=== PATIENT | female | born 1980 | race Caucasian/White ===

== ENCOUNTER 2017-03-14 08:20 | Emergency (ER) | payer BC ==
--- NOTE | ~2017-03-14 | CR63 ---
[facility]. [facility] A Service of [facility] & [facility] RADIOLOGY TEXT RESULTS PATIENT: RAKEL JACK LOCATION: SED : 79 UNIT #: [id number] AGE: [address]: Johann Manzo MD SEX: F ORDER DR: [id number] [address] [address] [id number] E MR#: [id number] Acc #: [id number] NAME: RAKEL JACK : 1980 SEX: F STUDY DATE/TIME: 03/14/2017 0847 UNIT: SED ROOM: STUDY DESCRIPTION: CR Chest 2 View Attending Physician: Johann Manzo M.D. Ordering Physician: Johann Manzo M.D. MEDICAL IMAGING REPORT This report is preliminary unless electronic signature is present. EXAM Chest, 2 views, 03/14/2017, 0847 hours. CLINICAL HISTORY Cough with onset of back pain four days ago from coughing. Chest pain when coughing. COMPARISON Chest film, 09/05/2013. FINDINGS Upright PA and lateral views of the chest demonstrate normal cardiac, mediastinal, and hilar contours. The lungs are well inflated and clear. There are no effusions or bone lesions. IMPRESSION Normal two-view chest exam. Dictated by... Jennifer Loyola M.D. THIS IS AN ELECTRONICALLY VERIFIED REPORT Jennifer Loyola M.D. at 03/14/2017 2:30 PM KARELY/rey TD: 03/14/2017 11:51 JOB #: [id number] MEDICAL IMAGING REPORT Page 1 of 1
[~2017-03-14 08:20] MED LIST: AVAPRO PO; BIRTH CONTROL PILL; CELEXA PO; KEFLEX PO; LEVAQUIN PO; MICROZIDE12.5 M1 PO; NITROFURANTOIN100 M3 PO
== END 2017-03-14 09:38 | disposition home or self-care (01) ==
LOC: SED 08:20
DX: J20.9 Acute bronchitis, unspecified (principal); J01.00 Acute maxillary sinusitis, unspecified; I10 Essential (primary) hypertension; F41.9 Anxiety disorder, unspecified; F17.200 Nicotine dependence, unspecified, uncomplicated
CPT/HCPCS: 71020; 94640; 99283

== ENCOUNTER 2017-04-11 07:32 | Observation (INO) | payer BC ==
--- NOTE | ~2017-04-11 | EKG ---
PATIENT: RAKEL JACK UNIT #: [id number] Ventricular Rate: 89 BPM Atrial Rate: 89 BPM P-R Interval: 124 ms QRS Duration: 84 ms Q-T Interval: 366 ms QTC Calculation(Bezet): 445 ms P [place]: 57 degrees Calculated R [place]: 48 degrees Calculated T [place]: 36 degrees Diagnosis Line: Normal sinus rhythm Diagnosis Line: Nonspecific ST abnormality Diagnosis Line: Abnormal ECG Diagnosis Line: No previous ECGs available Diagnosis Line: Confirmed by THA HERNANDEZ MD ([id number]) on Diagnosis Line: 04/12/2017 7:58:40 AM INTERPRETING MD: DAVID RAMIREZ
--- NOTE | ~2017-04-11 | DS ---
Unit #: [id number] #: [id number] Patient: RAKEL JACK [id number] [address] [address] [id number] I MR#: [id number] NAME: RAKEL JACK ROOM: 558 Age: 37 Sex: F Admission Date: 04/11/2017 : 1980 Discharge Date: 04/12/2017 Attending Physician: Scott Garcia M.D. Primary Care Physician: Christiano Griffin M.D. DISCHARGE SUMMARY ADMITTING DIAGNOSES 1. Acute coronary syndrome. 2. Hypertension. 3. Hyperlipidemia. 4. Tobacco use. 5. Family history of premature coronary artery disease. DISCHARGE DIAGNOSES 1. Acute coronary syndrome. 2. Hypertension. 3. Hyperlipidemia. 4. Tobacco use. 5. Family history of premature coronary artery disease. 6. Coronary artery disease. PROCEDURES PERFORMED She had a cardiac catheterization on 04/11/[address] Lopez. This showed there was mid inferobasal hypokinesis, left main was normal. LAD had a 75% proximal stenosis. The left circumflex had a 50% stenosis. The RCA had a 100% mid stenosis. RCA lesion was treated with a drug-eluting Xience stent. There were no perioperative complications. HOSPITAL COURSE The patient is a 37-year-old female, with history of hypertension, hyperlipidemia, tobacco use, who presented with complaints of chest pain, right shoulder pain, and radiation to the left arm. Initial troponin was 0.11 and repeat was 0.13. The patient was setup for a left heart catheterization. This was performed by Dr. Lopez as discussed above. There were no perioperative complications. She did have a right radial approach and had some discomfort following the catheterization. Pressure was applied and there was no hematoma. She denies any problems with chest pain at the time of discharge. Vital signs are stable. Blood pressure is 92/38, heart rate 70 and regular, temperature is 98.7, respiratory rate 18 and regular, O2 saturation 100% on room air. PHYSICAL EXAMINATION Unremarkable. There is some mild ecchymosis of the right radial site. DISCHARGE MEDICATIONS Celexa 20 mg daily, Lipitor 80 mg q.h.s., Toprol-XL 25 mg daily, Zestril 10 mg q.h.s., aspirin 81 mg daily, Brilinta 90 mg b.i.d. Unit #: [id number] #: [id number] Patient: RAKEL JACK Ms. will be discharged home. She will return in 2 weeks for PCI to proximal LAD. The office has been contacted and they will be calling the patient once this is scheduled to notify her of the date and time. She was advised to follow heart-healthy diet and to stop smoking. Dictated by... Danni Valdovinos P.A.C. for Farhad Lopez M.D. CMG/gonzalo TD: 04/17/2017 00:49 JOB #: [id number] DISCHARGE SUMMARY Page 1 of 1 X X DISCHARGE SUMMARY
--- NOTE | ~2017-04-11 | CO ---
Unit #: [id number] #: [id number] Patient: RAKEL SHERMAN [id number] [address] [address] [id number] I MR#: [id number] NAME: RAKEL SHERMAN ROOM: 558 Age: 37 Sex: F Admission Date: 04/11/2017 : 1980 Attending Physician: Scott Garcia M.D. Primary Care Physician: Christiano Griffin M.D. Consultation Date: 04/11/2017 CONSULTATION REPORT REASON FOR CONSULTATION Possible sleep apnea. HISTORY OF PRESENT ILLNESS A 37-year-old female who has hypertension, hyperlipidemia presents with chest pain. Apparently, had left ventricular dysfunction although echo report is pending and she underwent cardiac catheterization. A fairly significant three-vessel disease was identified and she underwent stenting. She now is in recovery. She does snore. She has daytime sleepiness. She does smoke a pack of cigarettes a day and states that she will occasionally wheeze, cough, and produce sputum. She is on no inhaled therapy at home. PAST MEDICAL HISTORY 1. Hyperlipidemia. 2. Hypertension. 3. Anxiety. HOME MEDICATIONS 1. Lipitor. 2. Celexa. 3. Avapro. 4. Hydrochlorothiazide. ALLERGIES No known medical allergies. SOCIAL HISTORY She smokes a pack of cigarettes a day. Drinks socially. Denies recreational drug use. FAMILY HISTORY Premature coronary artery disease. REVIEW OF SYSTEMS No fever, chills, weight loss, abdominal pain, melena, hematochezia, hematuria, dysuria, focal weakness, paraesthesias. She will have episodes of "bronchitis." She is on no inhaled therapy. PHYSICAL EXAMINATION GENERAL: Reveals a pleasant lady in no acute distress. VITAL SIGNS: Afebrile, pulse 77, respiratory rate 16, blood pressure 108/76. HEENT: Pupils equal, round, and reactive to light. Sclerae anicteric. Unit #: [id number] #: [id number] Patient: RAKEL SHERMAN Head atraumatic. Mallampati class IV oropharynx. She has good dentition. NECK: Supple. No supraclavicular or cervical adenopathy appreciated. CHEST: Limited exam is clear. No wheeze or stridor. CARDIAC: Reveals regular rate and rhythm. No pathologic murmur, rub, or gallop. ABDOMEN: Soft, nontender. No hepatomegaly or rebound. EXTREMITIES: Reveal calf site right radial artery. No clubbing, cyanosis. NEUROLOGIC: Again, limited exam because of her post procedure state but no definite unexplained focal muscle or sensory deficits. DIAGNOSTIC STUDIES LABORATORY: BUN 12, creatinine 0.6. Remainder of her CMP is normal. INR normal. CBC essentially normal. IMAGING: Chest x-ray is read as no acute disease. IMPRESSION 1. Chest pain: Underwent cardiac catheterization, found to have significant coronary artery disease and stenting. 2. Tobacco use: Historical evidence of bronchitic exacerbations, possible underlying chronic obstructive pulmonary disease. 3. Snoring, daytime sleepiness, possible sleep apnea. 4. Hyperlipidemia. 5. Hypertension. 6. History of anxiety, depression. PLAN Certainly, no smoking is of great benefit and this has been discussed with the patient. We discussed the pathophysiology of sleep apnea including health risks, including motor vehicle accidents, diagnostic process, and therapeutic options including CPAP. She seems interested in proceeding with evaluation. Ultimately, she should receive outpatient PFTs as well. Thank you very much for allowing me to participate in the care of Ms. Sherman. Dictated by... Saroj Francisco M.D. AYANA/krupa TD: 04/11/2017 15:22 JOB #: [id number] Unit #: [id number] #: [id number] Patient: RAKEL SHERMAN CONSULTATION REPORT Page 1 of 1 X Saroj Francisco MD CONSULTATION REPORT
--- NOTE | ~2017-04-11 | CR72 ---
[facility] A Service of [facility] & [facility] RADIOLOGY TEXT RESULTS PATIENT: RAKEL JACK LOCATION: [facility] : [birth year] UNIT #: [id number] AGE: [address]: Scott Garcia MD SEX: F ORDER DR: [id number] [facility] [address] [facility]. [place], [place] [address] [id number] E MR#: [id number] Acc #: [id number] NAME: RAKEL JACK : 1980 SEX: F STUDY DATE/TIME: 04/11/2017 8:00 UNIT: [facility] ROOM: STUDY DESCRIPTION: CR Chest Single View Portable Attending Physician: Estrellita Chowdary P.A.-C. Ordering Physician: Estrellita Chowdary P.A.-C. Primary Care Physician: Christiano Griffin M.D. MEDICAL IMAGING REPORT This report is preliminary unless electronic signature is present EXAM Portable chest HISTORY Mid-sternal chest pain since last night. COMPARISON Portable view of the chest demonstrates no infiltrates or effusions. Heart, mediastinum, and great vessels unremarkable. Probable calcified granuloma left lower lobe unchanged. Osseous structures are unremarkable. Overall, no acute findings. Dictated by... Emperatriz Gallegos M.D. THIS IS AN ELECTRONICALLY VERIFIED REPORT Emperatriz Gallegos M.D. at 04/12/2017 7:25 AM BILL/anna TD: 04/11/2017 09:06 JOB #: [id number] MEDICAL IMAGING REPORT Page 1 of 1 COPY
--- NOTE | ~2017-04-11 | HP ---
Unit #: [id number] #: [id number] Patient: RAKEL SHERMAN [id number] [address] [place], [place] [address] [id number] I MR#: [id number] NAME: RAKEL SHERMAN ROOM: 02530 Age: 37 Sex: F Admission Date: 04/11/2017 : 1980 Attending Physician: Scott Garcia M.D. Primary Care Physician: Christiano Griffin M.D. HISTORY AND PHYSICAL CHIEF COMPLAINT Chest pain. HISTORY OF PRESENT ILLNESS The patient is a 37-year-old female with a history of hypertension, hyperlipidemia and tobacco use who presented to the emergency department with complaints of chest pain. The patient states that the chest discomfort was sternal and described as a tightness. She also complained of a right shoulder-blade pain and also radiation of the pain to her left arm. There is associated shortness of air, nausea and sweating. The pain started yesterday evening around 7:00 p.m. at rest and lasted approximately 10 minutes. She said the pain would resolve for 30 minutes to an hour and then occasionally return. She states that she was able to sleep from 1:00 a.m. to 5:00 a.m. without problems and then woke up to get ready for work. She showered and continued getting ready and then had a recurrence of the chest discomfort and right shoulder blade pain. She again had associated shortness of air, nausea, and sweating. She came into the emergency department for further evaluation. She also states that she has been having intermittent right posterior shoulder pain for the past month and that this is not necessarily related to exertion. She does report that she had bronchitis approximately three or four weeks ago and has had a residual cough. No recent fever, chills, or myalgias. PAST MEDICAL HISTORY Hypertension, hyperlipidemia, history of nephrolithiasis. PAST SURGICAL HISTORY Tubal ligation. HOME MEDICATIONS Lipitor 40 mg q.h.s.; Celexa 20 mg daily; Avapro 300 mg daily; HCTZ 12.5 mg daily. ALLERGIES No known drug allergies. SOCIAL HISTORY She smokes one pack daily. She drinks alcohol socially. She denies any illicit drug use. 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 FAMILY HISTORY Her mother had an VA, CAD, and CABG x4 in her late 40s. She also had a CVA and at the age of 56. Unit #: [id number] #: [id number] Patient: RAKEL SHERMAN REVIEW OF SYSTEMS GENERAL: She denies recent fevers, chills, myalgia. SKIN: Denies recent rashes or hives. HEENT: She has occasional headaches. Denies recent vision, hearing loss, epistaxis of dysphagia. PULMONARY: She has a residual cough from her bronchitis three to four weeks ago. She has also noticed increased dyspnea on exertion over the past month. CARDIAC: Chest pain as discussed above. Denies palpitations, tachycardia, orthopnea or PND. GI: Nausea as above. Denies diarrhea, melena or vomiting. : No hematuria. EXTREMITIES: No swelling or claudication. SPINE: No chronic pain. NEUROLOGIC: No dizziness, syncope, or stroke symptoms. PHYSICAL EXAMINATION VITAL SIGNS: Blood pressure is 112/73, heart rate 73 and regular, respirations 16 and regular, temperature is 97.8. O2 sat 99% on room air. GENERAL: The patient is a well developed and well nourished, obese, female in no acute distress. Awake, alert and oriented x3. SKIN: No rashes or hives. HEENT: Head is normocephalic and atraumatic. There is no xanthelasma. Oral mucosa is pink and moist. NECK: No JVD or carotid bruits. SPINE: No kyphosis or scoliosis. CHEST: Clear to auscultation bilaterally without wheezes, rhonchi, rales or accessory muscle use. CORONARY: Regular rate and rhythm without murmur, gallop, rub or lift. ABDOMEN: Soft, nontender, nondistended. Positive bowel sounds x4. The abdominal pulsation is not enlarged. EXTREMITIES: No clubbing, cyanosis or edema. Peripheral pulses are 2+ bilaterally. NEUROLOGIC: Awake, alert and oriented x3. Pleasant and cooperative. DIAGNOSTIC STUDIES CURRENT LABS AND TESTS: White blood cell 6.6, hemoglobin 12.4, hematocrit 36.9, platelets 206. Sodium 138, potassium 3.6, chloride 106, CO2 26, BUN 12, creatinine 0.6, glucose 102. IMAGING STUDIES: Chest x-ray - shows no acute disease. Troponin was 0.11 at 05/24/2017 this morning and 0.13 at 9:48 this morning (this was point of care). PT 10.4, INR 1.0. CARDIOLOGY STUDIES: EKG shows normal sinus rhythm. ASSESSMENT 1. Chest pain. 2. Hypertension. 3. Hyperlipidemia. 4. Tobacco use. 5. Family history of premature coronary artery disease. Ms. Sherman's case was discussed with Dr. Scott Garcia. She has had an echo completed and this will be reviewed. If she shows any LV dysfunction she will set for a cardiac catheterization. Should her echo be normal we will continue to follow serial enzymes and still consider cath in the a.m. Patient was discussed with Dr. Garcia prior to dictation. Unit #: [id number] #: [id number] Patient: RAKEL SHERMAN Dictated by Denzel Hays. for Soctt Garcia M.D. CMG/karel TD: 04/11/2017 11:46 JOB #: [id number] HISTORY AND PHYSICAL Page 1 of 1 X X HISTORY AND PHYSICAL
--- NOTE | ~2017-04-11 | EKG ---
PATIENT: RAKEL JACK UNIT #: [id number] Ventricular Rate: 77 BPM Atrial Rate: 77 BPM P-R Interval: 128 ms QRS Duration: 76 ms Q-T Interval: 382 ms QTC Calculation(Bezet): 432 ms P [place]: 56 degrees Calculated R [place]: 41 degrees Calculated T [place]: 17 degrees Diagnosis Line: Normal sinus rhythm Diagnosis Line: Normal ECG Diagnosis Line: When compared with ECG of 11-APR-2017 07:41, Diagnosis Line: (unconfirmed) Diagnosis Line: No significant change was found Diagnosis Line: Confirmed by THA HERNANDEZ MD ([id number]) on Diagnosis Line: 04/12/2017 8:03:08 AM INTERPRETING MD: DAVID RAMIREZ
[2017-04-11 08:20] LABS: POC - CKMB 4.9 ng/mL (0.0-7.9); POC - TROPONIN 0.11 ng/mL (<=0.05)
[2017-04-11 08:32] LABS: BASOPHIL% 0.6 % (0-2.5); EOSINOPHIL# 0.3 X10e3 (0-0.7); HEMATOCRIT 36.9 % (35.0-45.0); HEMOGLOBIN 12.4 gm/dL (12.0-16.0); LYMPHOCYTE# 1.5 X10e3 (1.0-3.5); LYMPHOCYTE% 22.1 % (17.0-45.0); MEAN CELL VOLUME 84.3 FL (83-96); MEAN CORPUSCULAR HEMOGLOBIN 28.2 PG (28-34); MEAN CORPUSCULAR HGB CONC 33.5 g/dL (30-36); MEAN PLATELET VOLUME 10.2 FL (6.5-11.5); MONOCYTE# 0.5 X10e3 (0-1.0); MONOCYTE% 8.3 % (3.0-12.0); NEUTROPHIL# 4.2 X10e3 (1.5-7.1); PLATELET COUNT 206 X10e3 (140-420); RED BLOOD COUNT 4.38 X10e (3.90-5.30); RED CELL DISTRIBUTION WIDTH 15.7 % (11.0-15.5); WHITE BLOOD COUNT 6.6 X10e3 (4.0-10.5)
[2017-04-11 08:36] LABS: DIFF IND NO
[2017-04-11] MEDS ORDERED: CELEXA20 MG PO (09:00)
[2017-04-11] MEDS ORDERED: LIPITOR40 MG PO (09:00)
[2017-04-11 09:01] LABS: PARTIAL THROMBOPLASTIN TIME 25.2 SECONDS (23.5-31.3); PROTHROMBIN TIME (PATIENT) 10.4 SECONDS (10.0-11.7)
[2017-04-11] MEDS ORDERED: AVAPRO300 M1 PO (09:01)
[2017-04-11] MEDS ORDERED: HYDROCHLOROTH12.5 M1 PO (09:01)
[2017-04-11 09:02] LABS: ALBUMIN SERUM 4.1 g/dL (3.5-5.0); ALKALINE PHOSPHATASE 77 U/L (32-92); ALT (SGPT) 17 U/L (10-40); AST (SGOT) 20 U/L (10-42); BILIRUBIN,TOTAL 0.7 mg/dL (0.2-2.0); BLOOD UREA NITROGEN 12 mg/dL (9-23); CALCIUM SERUM 9.1 mg/dL (8.4-10.2); CARBON DIOXIDE 26 mmol/L (22-31); CHLORIDE 106 mmol/L (100-111); CREATININE SERUM 0.6 mg/dL (0.6-1.4); GLOM FILT RATE Estimated 115.6 mL/min (>60); GLUCOSE FASTING 102 mg/dL (70-110); POTASSIUM 3.6 mmol/L (3.5-5.1); PROTEIN TOTAL SERUM 7.1 g/dL (6.0-8.3); SODIUM 138 mmol/L (135-145)
[2017-04-11 09:08] LABS: BILIRUBIN, DIRECT <0.1 mg/dL (0.0-0.2); BILIRUBIN,INDIRECT 0.6 mg/dL (0.0-0.9)
[2017-04-11 09:50] LABS: POC - CKMB 4.2 ng/mL (0.0-7.9); POC - TROPONIN 0.13 ng/mL (<=0.05)
[2017-04-11 21:57] LABS: ANGIO %MB 6.3 % (0.0-4.0); ANGIO MB 6.4 ng/ml
[2017-04-12 06:54] LABS: ANGIO %MB 5.6 % (0.0-4.0); ANGIO MB 5.5 ng/ml
[2017-04-12 13:46] LABS: BASOPHIL% 0.2 % (0-2.5); EOSINOPHIL# 0.2 X10e3 (0-0.7); EOSINOPHIL% 2.9 % (0.0-7.0); HEMATOCRIT 34.7 % (35.0-45.0); HEMOGLOBIN 11.5 gm/dL (12.0-16.0); LYMPHOCYTE# 1.3 X10e3 (1.0-3.5); MEAN CELL VOLUME 84.7 FL (83-96); MEAN PLATELET VOLUME 9.7 FL (6.5-11.5); MONOCYTE# 0.6 X10e3 (0-1.0); MONOCYTE% 9.5 % (3.0-12.0); NEUTROPHIL# 4.3 X10e3 (1.5-7.1); NEUTROPHIL% 67.4 % (40-75); PLATELET COUNT 186 X10e3 (140-420); RED CELL DISTRIBUTION WIDTH 15.1 % (11.0-15.5); WHITE BLOOD COUNT 6.3 X10e3 (4.0-10.5)
[2017-04-12 13:48] LABS: DIFF IND NO
[2017-04-12 14:04] LABS: BUN/CREATININE RATIO 12.85; CALCIUM SERUM 8.6 mg/dL (8.4-10.2); CREATININE SERUM 0.7 mg/dL (0.6-1.4); GLOM FILT RATE Estimated 109.9 mL/min (>60); POTASSIUM 3.8 mmol/L (3.5-5.1)
[2017-04-12] MEDS ORDERED: ATORVASTATIN CA80 MG PO (17:33)
[2017-04-12] MEDS ORDERED: TOPROL XL PO (17:33)
[2017-04-12] MEDS ORDERED: ASPIRIN81 MG PO (17:34)
[2017-04-12] MEDS ORDERED: ZESTRIL10 M1 PO (17:34)
[2017-04-12] MEDS ORDERED: BRILINTA90 MG PO (17:35)
== END 2017-04-12 19:14 | disposition home or self-care (01) | DRG 282 ==
LOC: CED 07:32 → CEDOF 10:30 → C5B 10:30 → CED 11:23 → CEDOF 11:23 → C5B 11:40 → CED 11:40 → C5B 14:35 → CEDOF 14:35 → C5B 04-12 19:14
PROVIDERS: Internal Medicine Cardiovascular Disease; Physician Assistant
DX: I21.19 ST elevation (STEMI) myocardial infarction involving other coronary artery of inferior wall (principal); I25.10 Atherosclerotic heart disease of native coronary artery without angina pectoris; I10 Essential (primary) hypertension; E78.5 Hyperlipidemia, unspecified; F17.210 Nicotine dependence, cigarettes, uncomplicated; R06.83 Snoring; I08.1 Rheumatic disorders of both mitral and tricuspid valves; E66.9 Obesity, unspecified; Z82.49 Family history of ischemic heart disease and other diseases of the circulatory system; Z82.3 Family history of stroke; Z79.02 Long term (current) use of antithrombotics/antiplatelets; Z79.82 Long term (current) use of aspirin
CPT/HCPCS: 93458; C9600; 36415; 71010; 80048; 80061; 80076; 82550; 82553; 83036; 84443; 84484; 85025; 85049; 85347; 85610; 85730; 93005; 93306; 99285; C1725; C1769; C1874; C1887; C1894; G0378; J1327; J1644; J2250; J2370; J3010

== ENCOUNTER 2017-04-24 06:21 | Observation (INO) | payer BC ==
[~2017-04-24] VITALS: Ht 160 cm; Wt 92.3 kg
--- NOTE | ~2017-04-24 | EKG ---
PATIENT: RAKEL JACK UNIT #: [id number] Ventricular Rate: 67 BPM Atrial Rate: 67 BPM P-R Interval: 156 ms QRS Duration: 88 ms Q-T Interval: 396 ms QTC Calculation(Bezet): 418 ms P [place]: 49 degrees Calculated R [place]: 42 degrees Calculated T [place]: 40 degrees Diagnosis Line: Normal sinus rhythm Diagnosis Line: Normal ECG Diagnosis Line: When compared with ECG of 24-APR-2017 07:44, Diagnosis Line: (unconfirmed) Diagnosis Line: No significant change was found Diagnosis Line: Confirmed by MARY BETH GARIBAY MD ([id number]) on 04/25/2017 Diagnosis Line: 7:53:17 PM INTERPRETING MD: LANI RAMIREZ
--- NOTE | ~2017-04-24 | EKG ---
PATIENT: RAKEL JACK UNIT #: [id number] Ventricular Rate: 67 BPM Atrial Rate: 67 BPM P-R Interval: 150 ms QRS Duration: 90 ms Q-T Interval: 388 ms QTC Calculation(Bezet): 409 ms P [place]: 30 degrees Calculated R [place]: 39 degrees Calculated T [place]: 35 degrees Diagnosis Line: Normal sinus rhythm Diagnosis Line: Normal ECG Diagnosis Line: When compared with ECG of 12-APR-2017 06:35, Diagnosis Line: No significant change was found Diagnosis Line: Confirmed by MARY BETH GARIBAY MD ([id number]) on 04/25/2017 Diagnosis Line: 7:51:33 PM INTERPRETING MD: LANI RAMIREZ
--- NOTE | ~2017-04-24 | EKG ---
PATIENT: RAKEL JACK UNIT #: [id number] Ventricular Rate: 67 BPM Atrial Rate: 67 BPM P-R Interval: 152 ms QRS Duration: 94 ms Q-T Interval: 404 ms QTC Calculation(Bezet): 426 ms P [place]: 59 degrees Calculated R [place]: 43 degrees Calculated T [place]: 28 degrees Diagnosis Line: Normal sinus rhythm Diagnosis Line: Normal ECG Diagnosis Line: When compared with ECG of 24-APR-2017 18:58, Diagnosis Line: (unconfirmed) Diagnosis Line: No significant change was found Diagnosis Line: Confirmed by MARY BETH GARIBAY MD ([id number]) on 04/25/2017 Diagnosis Line: 7:57:32 PM INTERPRETING MD: LANI RAMIREZ
--- NOTE | ~2017-04-24 | DS ---
Unit #: [id number] #: [id number] Patient: RAKEL JACK [id number] [address] [address] [id number] I MR#: [id number] NAME: RAKEL JACK ROOM: 55 Age: 37 Sex: F Admission Date: 04/24/2017 : 1980 Discharge Date: 04/25/2017 Attending Physician: Farhad Lopez M.D. Referring Physician: Farhad Lopez M.D. Primary Care Physician: Christiano Griffin M.D. DISCHARGE SUMMARY DISCHARGE DIAGNOSES 1. Recent cardiac catheterization, 04/11/2017, per Dr. Farhad Lopez with urgent percutaneous coronary intervention and stent to the mid right coronary artery. Proximal left anterior descending with 90% stenosis with 50% stenosis at the proximal two-third and distal one-third of the right coronary artery that was not dilated. Circumflex artery had 50% stenosis. 2. Status post percutaneous coronary intervention with drug-eluting stent to the proximal left anterior descending 04/24/2017. 3. Hypertension. 4. Hyperlipidemia. 5. Nicotine abuse. DISCHARGE MEDICATIONS 1. Toprol XL 25 mg daily. 2. Lisinopril 10 mg daily at h.s. 3. Aspirin 81 mg daily. 4. Celexa 20 mg daily. 5. Atorvastatin 80 mg q.h.s. 6. Brilinta 90 mg b.i.d. HOSPITAL COURSE This is a 37-year-old female who was admitted for an elective PCI of 90% stenosis to the proximal LAD that was found on cardiac catheterization 04/11/2017. At that time she had 100% stenosis of the right coronary artery and underwent angioplasty with stent placement. She has been on dual antiplatelet therapy with aspirin and Brilinta and high intensity statin with Lipitor. She was continued on BIANCA inhibitor and beta-alise. There was successful deployment of 3 x 15 mm XIENCE Alpine stent into the proximal LAD 90% stenosis reducing the stenosis to 0%. The stent was post dilated to 3.28 distally and 3.54 proximally using a noncompliant balloon. Post procedure she had no electrocardiographic changes or recurrent chest pain. The right groin site is healing well without hematoma or bruising. Heart rate and blood pressure are stable. She is stable for discharge today. ASSESSMENT VITAL SIGNS: Blood pressure is 94/56, heart rate 67, temperature 98.3. CHEST: Clear to auscultation. HEART: S1, S2. Heart sounds are normal. No murmurs. No rubs. No clicks. Regular rate and rhythm. ABDOMEN: Soft, nontender with bowel sounds present. EXTREMITIES: Right groin site without hematoma or bruising. Extremities Unit #: [id number] #: [id number] Patient: RAKEL JACK are without leg edema. Pedal pulses are palpable. DIAGNOSTIC STUDIES LABORATORY STUDIES: Glucose 98, BUN 10, creatinine 0.9, sodium 132, potassium 4.2. Cholesterol 105, triglycerides 111, LDL 50, HDL 33. White count 6.2, hemoglobin 9.8, hematocrit 29.6, platelet count 193. CK total 51, MB 0.9, MB index 1.8. CARDIOVASCULAR: Electrocardiogram shows normal sinus rhythm, rate of 62 beats per minute with Q waves noted in the inferior leads from questionable old inferior infarct. DISCHARGE INSTRUCTIONS 1. The patient will be discharged home today. 2. Follow up with Dr. Lopez on June 13 at 2:45 p.m. 3. The patient was seen by cardiac rehab, and she is scheduled for orientation on 05/13/2017 at 5 p.m. 4. The patient is to continue on dual antiplatelet therapy with aspirin and Brilinta for at least 1 year. 5. She will need risk factor modifications with discontinuation of nicotine abuse. 6. 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 Dictated by... Boogie Quigley A.P.R.N. for Garcia Olson/cliff TD: 04/26/2017 16:24 JOB #: [id number] DISCHARGE SUMMARY Page 1 of 1 X Boogie Quigley APRN DISCHARGE SUMMARY
--- NOTE | ~2017-04-24 | EKG ---
PATIENT: RAKEL JACK UNIT #: [id number] Ventricular Rate: 87 BPM Atrial Rate: 87 BPM P-R Interval: 138 ms QRS Duration: 80 ms Q-T Interval: 372 ms QTC Calculation(Bezet): 447 ms P [place]: 57 degrees Calculated R [place]: 39 degrees Calculated T [place]: 37 degrees Diagnosis Line: Normal sinus rhythm Diagnosis Line: Normal ECG Diagnosis Line: When compared with ECG of 24-APR-2017 10:03, Diagnosis Line: (unconfirmed) Diagnosis Line: No significant change was found Diagnosis Line: Confirmed by MARY BETH GARIBAY MD ([id number]) on 04/25/2017 Diagnosis Line: 7:56:19 PM INTERPRETING MD: LANI RAMIREZ
[~2017-04-24 06:21] MED LIST changes: +ASPIRIN81 MG PO; +ATORVASTATIN CA80 MG PO; +AVAPRO300 M1 PO; +BRILINTA90 MG PO; +CELEXA20 MG PO; +HYDROCHLOROTH12.5 M1 PO; +LIPITOR40 MG PO; +TOPROL XL PO; +ZESTRIL10 M1 PO
[2017-04-24 07:10] LABS: HEMATOCRIT 33.5 % (35.0-45.0); HEMOGLOBIN 11.1 gm/dL (12.0-16.0); MEAN CELL VOLUME 84.5 FL (83-96); MEAN CORPUSCULAR HEMOGLOBIN 27.9 PG (28-34); MEAN CORPUSCULAR HGB CONC 33.1 g/dL (30-36); MEAN PLATELET VOLUME 9.9 FL (6.5-11.5); RED BLOOD COUNT 3.96 X10e (3.90-5.30); RED CELL DISTRIBUTION WIDTH 15.2 % (11.0-15.5); WHITE BLOOD COUNT 6.6 X10e3 (4.0-10.5)
[2017-04-24 07:26] LABS: PROTHROMBIN TIME (PATIENT) 10.4 SECONDS (10.0-11.7)
[2017-04-24 07:46] LABS: CALCIUM SERUM 8.9 mg/dL (8.4-10.2); CREATININE SERUM 0.8 mg/dL (0.6-1.4); GLOM FILT RATE Estimated 93.6 mL/min (>60)
[2017-04-24 20:11] LABS: ANGIO %MB 2.2 % (0.0-4.0); ANGIO MB 1.1 ng/ml
[2017-04-25 01:43] LABS: BASOPHIL% 0.4 % (0-2.5); EOSINOPHIL# 0.3 X10e3 (0-0.7); EOSINOPHIL% 4.1 % (0.0-7.0); HEMATOCRIT 29.6 % (35.0-45.0); HEMOGLOBIN 9.8 gm/dL (12.0-16.0); LYMPHOCYTE# 1.7 X10e3 (1.0-3.5); LYMPHOCYTE% 27.9 % (17.0-45.0); MEAN CELL VOLUME 85.8 FL (83-96); MEAN CORPUSCULAR HEMOGLOBIN 28.5 PG (28-34); MEAN CORPUSCULAR HGB CONC 33.2 g/dL (30-36); MEAN PLATELET VOLUME 10.2 FL (6.5-11.5); MONOCYTE# 0.6 X10e3 (0-1.0); NEUTROPHIL# 3.6 X10e3 (1.5-7.1); NEUTROPHIL% 57.6 % (40-75); PLATELET COUNT 193 X10e3 (140-420); RED BLOOD COUNT 3.45 X10e (3.90-5.30); RED CELL DISTRIBUTION WIDTH 15.3 % (11.0-15.5); WHITE BLOOD COUNT 6.2 X10e3 (4.0-10.5)
[2017-04-25 01:46] LABS: DIFF IND NO
[2017-04-25 02:13] LABS: BUN/CREATININE RATIO 11.11; CALCIUM SERUM 8.3 mg/dL (8.4-10.2); CREATININE SERUM 0.9 mg/dL (0.6-1.4); GLOM FILT RATE Estimated 81.2 mL/min (>60); POTASSIUM 4.2 mmol/L (3.5-5.1)
[2017-04-25 02:27] LABS: ANGIO %MB 1.8 % (0.0-4.0); ANGIO MB 0.9 ng/ml
== END 2017-04-25 15:16 | disposition home or self-care (01) | DRG 303 ==
LOC: CCVL 06:21 → CEDOF 09:30 → CCVL 18:17 → C5B 18:17 → CEDOF 18:17 → C5B 18:21 → CEDOF 18:21 → C5B 04-25 15:16
PROVIDERS: Internal Medicine Cardiovascular Disease
DX: I25.10 Atherosclerotic heart disease of native coronary artery without angina pectoris (principal); I10 Essential (primary) hypertension; E78.5 Hyperlipidemia, unspecified; F17.200 Nicotine dependence, unspecified, uncomplicated
CPT/HCPCS: 36415; 80048; 80061; 82550; 82553; 84703; 85025; 85027; 85347; 85610; 85730; 93005; C1725; C1769; C1874; C1887; C1894; G0378; J0461; J1644; J2250; J2270; J3010